=== PATIENT | female | born 1995 | race Caucasian/White ===

== ENCOUNTER 2021-01-04 04:57 | Emergency (ER) | payer MEDICAID, OTHER ==
[~2021-01-04] VITALS: Ht 152.4 cm; Wt 104.8 kg
[2021-01-04 05:09] VITALS: BP 129/81
== END 2021-01-04 06:50 | disposition left against medical advice (07) ==
LOC: ER 04:57
DX: J02.9 Acute pharyngitis, unspecified (principal); Z53.21 Procedure and treatment not carried out due to patient leaving prior to being seen by health care provider

== ENCOUNTER 2021-01-05 02:49 | Emergency (ER) | payer MEDICAID ==
[~2021-01-05] VITALS: Ht 152.4 cm; Wt 105.2 kg
[2021-01-05 05:20] VITALS: BP 115/85
[2021-01-05] MEDS ORDERED: ALPRAZolam 0.5 MG TAB PO ONE (05:30)
== END 2021-01-05 06:22 | disposition home or self-care (01) ==
LOC: ER 02:49 → EDBD 02:49 → ER 06:19
DX: F41.9 Anxiety disorder, unspecified (principal); F43.9 Reaction to severe stress, unspecified; E66.9 Obesity, unspecified; Z68.42 Body mass index [BMI] 45.0-49.9, adult